=== PATIENT | male | born 1925 | race Caucasian/White ===

== ENCOUNTER → 2016-04-08 | Outpatient (CLI) | payer MEDICARE | END | disposition home or self-care (01) | LOC: GMA 17:25 | PROVIDERS: ATTEND Nurse Practitioner Acute Care | DX: M25.579 Pain in unspecified ankle and joints of unspecified foot (principal) ==

== ENCOUNTER → 2016-07-10 | Outpatient (CLI) | payer MEDICARE | END | disposition home or self-care (01) | LOC: GMAM 10:28 | PROVIDERS: ATTEND Family Medicine | DX: M10.9 Gout, unspecified (principal) ==

== ENCOUNTER → 2016-07-11 | Outpatient (CLI) | payer MEDICARE | END | disposition home or self-care (01) | LOC: GMAM 18:08 | PROVIDERS: ATTEND Family Medicine | DX: D64.9 Anemia, unspecified (principal) ==

== ENCOUNTER → 2016-08-08 | Outpatient (CLI) | payer MEDICARE | END | disposition home or self-care (01) | LOC: GMAM 11:30 | PROVIDERS: ATTEND Family Medicine | DX: D64.9 Anemia, unspecified (principal) ==

== ENCOUNTER → 2016-11-12 | Outpatient (CLI) | payer MEDICARE | END | disposition home or self-care (01) | LOC: GMAM 10:20 | PROVIDERS: ATTEND Family Medicine | DX: Z79.899 Other long term (current) drug therapy (principal); D64.9 Anemia, unspecified; M10.9 Gout, unspecified ==

== ENCOUNTER 2017-03-09 13:48 | Emergency (ER) | payer MEDICARE ==
[2017-03-09] MEDS ORDERED: ALUMINUM & MAGNESIUM HYDROXIDE 30 ML UD PO ONE (15:14)
[2017-03-09 16:11] VITALS: BP 187/84
[2017-03-09 16:18] VITALS: TEMP 98.8
--- NOTE | 2017-03-09 16:28 | RAD ---
EXAM DESCRIPTION: Abdomen Series CLINICAL HISTORY: 89 years Male, abd cramping COMPARISON: August 05, 2013 TECHNIQUE: Supine and upright views FINDINGS: Nonspecific bowel gas pattern. No evidence of intestinal obstruction. No free air. Vascular calcifications. Thoracic lumbar spondylosis and scoliosis. Chest radiograph demonstrates mild congestive change but no focal consolidation IMPRESSION: Nonspecific bowel gas pattern Mild congestive change within the chest Electronically signed by: Ezra Naik 03/09/2017 4:28 PM [employer]
--- NOTE | 2017-03-09 16:40 | ED.PDOC ---
History of Present Illness - General Chief Complaint: GI Problem Stated Complaint: stomach upset, rhinitis Time Seen by Provider: 03/09/17 15:08 Source: patient Exam Limitations: no limitations - History of Present Illness Initial Comments: The patient is an 89-year-old male presenting to the emergency room secondary to abdominal cramping that started this morning. It has been moderate in nature. He had little bit of diarrhea a couple of days ago but has not had a bowel movement since. No vomiting but mild nausea. No sore throat or No shortness of breath. Timing/Duration: 4-6 hours Severity: mild Improving Factors: nothing Worsening Factors: nothing Associated Symptoms: loss of appetite, nausea/vomiting Home Medications: Ambulatory Orders Acetaminophen [Tylenol Adult Liquid] 500 mg PO Q4H PRN 08/02/13 Bumetanide [Bumex] 1 mg PO DAILY 08/02/13 Dutasteride [Avodart] 0.5 mg PO DAILY 08/02/13 Febuxostat [Uloric] 40 mg PO DAILY 08/02/13 Gabapentin 300 mg PO DAILY PRN 08/02/13 [id number]-Agcgyszdkgp-Duk C- [Glucosamine Chondroitin 1] 2 cap PO DAILY HYDROcodone 5MG/APAP 325MG [[place] 5/325] 1 tab PO .Q6H PRN 08/02/13 Insulin Aspart [Novolog] 0 unit SC AC PRN 08/02/13 Insulin Detemir [Levemir Pen] 5 unit SUBCU BID 08/02/13 Latanoprost 0.005% Ophth [Xalatan 0.005% Ophthalmic Drops] 1 drop OPHTH HS 08/02 Lubiprostone [Amitiza] 24 mcg PO BID 08/02/13 Metoprolol Tartrate [Lopressor] 50 mg PO HS 08/02/13 Multiple Vitamins W/ Minerals 1 tab PO HS 08/02/13 Multiple Vitamins W/ Minerals [Icaps Areds Formula] 2 tab PO HS 08/02/13 Olmesartan Medoxomil [Benicar] 20 mg PO DAILY 08/02/13 Ondansetron [Zofran Odt] 4 mg PO Q4H PRN 08/02/13 Rivaroxaban [Xarelto] 10 mg PO HS 08/02/13 Rosuvastatin Calcium [Crestor] 40 mg PO DAILY 08/02/13 Tamsulosin [Flomax] 0.4 mg PO HS 08/02/13 Metoclopramide HCl [Reglan] 10 mg PO BID #0 tab 08/05/13 Review of Systems - Review of Systems Constitutional: States: malaise EENTM: States: no symptoms reported Respiratory: States: no symptoms reported Cardiology: States: no symptoms reported Gastrointestinal/Abdominal: States: constipation, diarrhea, nausea Genitourinary: States: no symptoms reported Musculoskeletal: States: no symptoms reported Skin: States: no symptoms reported Neurological: States: no symptoms reported Endocrine: States: no symptoms reported All other Systems: No Change from Baseline Past Medical History (General) - Patient Medical History Hx Seizures: No Hx Stroke: Yes Hx Dementia: No Hx Asthma: No Hx of COPD: No Hx Cardiac Disorders: No Hx Congestive Heart Failure: No Hx Pacemaker: No Hx Hypertension: Yes Hx Thyroid Disease: No Hx Diabetes: Yes Hx Gastroesophageal Reflux: No Hx Renal Disease: No Hx MRSA: No - Vaccination History Hx Influenza Vaccination: Yes Hx Pneumococcal Vaccination: Yes - Social History Hx Alcohol Use: No Hx Substance Use: No Hx Physical Abuse: No Hx Emotional Abuse: No Family Medical History - Family History Mother Family History: Unknown Physical Exam - Physical Exam General Appearance: Alert, Comfortable, No apparent distress Eye Exam: bilateral normal Ears, Nose, Throat: hearing grossly normal, normal ENT inspection, normal pharynx Neck: full range of motion, supple, normal inspection Respiratory: lungs clear, normal breath sounds, no respiratory distress, no accessory muscle use Cardiovascular/Chest: normal peripheral pulses, no edema, other - regular rate Peripheral Pulses: radial,right: 2+, radial,left: 2+, dorsalis pedis,right: 2+, dorsalis pedis,left: 2+ Gastrointestinal/Abdominal: non tender, soft, other - o rebound or peritoneal signs. No point pain. 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 He does have some constipation on his x-ray and should take MiraLAX daily for the next couple of days. He needs to keep himself well hydrated given his chronic renal insufficiency. He should eat a bland diet. He should try and ambulate. Lab work and x-ray appear reassuring. He has tested negative for the flu. He should follow up with his primary care doctor later this week. - Results/Orders Results/Orders: Laboratory Results - last 24 hr 03/09/17 03/09/17 03/09/17 15:14 15:14 15:43 WBC 8.2 RBC 3.69 L Hgb 11.0 L Hct 33.4 L MCV 90.5 MCH 29.8 MCHC 32.8 L RDW 14.5 Plt Count 247 MPV 7.7 Absolute Neuts (auto) 6.50 Absolute Lymphs (auto) 1.00 Absolute Monos (auto) 0.60 Absolute Eos (auto) 0.00 Absolute Basos (auto) 0.10 Neutrophils % 78.9 H Lymphocytes % 12.7 L Monocytes % 7.3 Eosinophils % 0.4 L Basophils % 0.7 Sodium 137 Potassium 3.9 Chloride 105 Carbon Dioxide 24 Anion Gap 11.9 L BUN 33 H Creatinine 1.95 H BUN/Creatinine Ratio 16.9 Random Glucose 163 H Serum Osmolality 284.7 Calcium 8.6 Total Bilirubin 0.8 AST 24 ALT 25 Alkaline Phosphatase 21 L Creatine Kinase 65 CK-MB (CK-2) 3.2 CK-MB (CK-2) % Not Reportable Troponin I 0.07 H* Serum Total Protein 7.1 Albumin 3.5 Globulin 3.6 H Albumin/Globulin Ratio 1.0 L Amylase 107 H Lipase 27 Urine Color Yellow Urine Appearance Clear Urine pH 5.5 Ur Specific [place] 1.020 Urine Protein 100 H Urine Glucose (UA) Negative Urine Ketones Trace Urine Blood Trace-lysed H Urine Nitrite Negative Urine Bilirubin Negative Urine Urobilinogen 0.2 Ur Leukocyte Esterase Negative Urine RBC 1-3 Urine WBC 0 Ur Epithelial Cells 0 Urine Bacteria 0 e has tested negative for flu. Chest x-ray shows mild vascular congestion. Abdominal x-ray shows a moderate amount of stool but no perforation or obstruction. Departure - Departure Clinical Impression: Constipation Qualifiers: Constipation type: unspecified constipation type Qualified Code(s): K59.00 - Constipation, unspecified Disposition: Discharge to Home or Self Care Condition: Fair Departure Forms: ED Discharge - Pt. Copy, Patient Portal Self Enrollment Instructions: DI for Constipation Diet: bland diet Activity: increase activity as tolerated Referrals: Dave Jackson MD [Primary Care Provider] - 1-5 Days Home Medications: Ambulatory Orders Acetaminophen [Tylenol Adult Liquid] 500 mg PO Q4H PRN 08/02/13 Bumetanide [Bumex] 1 mg PO DAILY 08/02/13 Dutasteride [Avodart] 0.5 mg PO DAILY 08/02/13 Febuxostat [Uloric] 40 mg PO DAILY 08/02/13 Gabapentin 300 mg PO DAILY PRN 08/02/13 Eqeefqjoqqp-Imchuasabui-Eji C- [Glucosamine Chondroitin 1] 2 cap PO DAILY HYDROcodone 5MG/APAP 325MG [[place] 5/325] 1 tab PO .Q6H PRN 08/02/13 Insulin Aspart [Novolog] 0 unit SC AC PRN 08/02/13 Insulin Detemir [Levemir Pen] 5 unit SUBCU BID 08/02/13 Latanoprost 0.005% Ophth [Xalatan 0.005% Ophthalmic Drops] 1 drop OPHTH HS 08/02 Lubiprostone [Amitiza] 24 mcg PO BID 08/02/13 Metoprolol Tartrate [Lopressor] 50 mg PO HS 08/02/13 Multiple Vitamins W/ Minerals 1 tab PO HS 08/02/13 Multiple Vitamins W/ Minerals [Icaps Areds Formula] 2 tab PO HS 08/02/13 Olmesartan Medoxomil [Benicar] 20 mg PO DAILY 08/02/13 Ondansetron [Zofran Odt] 4 mg PO Q4H PRN 08/02/13 Rivaroxaban [Xarelto] 10 mg PO HS 08/02/13 Rosuvastatin Calcium [Crestor] 40 mg PO DAILY 08/02/13 Tamsulosin [Flomax] 0.4 mg PO HS 08/02/13 Metoclopramide HCl [Reglan] 10 mg PO BID #0 tab 08/05/13 Additional Instructions: the patient is an 89-year-old male presenting with abdominal cramping that is likely due to a viral gastroenteritis. He does have some constipation on his x-ray and should take MiraLAX daily for the next couple of days. He needs to keep himself well hydrated given his chronic renal insufficiency. He should eat a bland diet. He should try and ambulate. Lab work and x-ray appear reassuring. He has tested negative for the flu. He should follow up with his primary care doctor later this week.
[2017-03-09 17:55] VITALS: O2SAT 95
== END 2017-03-09 17:10 | disposition home or self-care (01) ==
LOC: ER 13:48
DX: K59.00 Constipation, unspecified (principal); I10 Essential (primary) hypertension; E11.9 Type 2 diabetes mellitus without complications; Z79.899 Other long term (current) drug therapy; Z86.73 Personal history of transient ischemic attack (TIA), and cerebral infarction without residual deficits

== ENCOUNTER 2017-03-19 17:06 | Emergency (ER) | payer MEDICARE ==
--- NOTE | 2017-03-19 18:48 | ED.PDOC ---
History of Present Illness - General Chief Complaint: GI Problem Stated Complaint: nausea Time Seen by Provider: 03/19/17 18:41 Information Source: patient, family Exam Limitations: no limitations - History of Present Illness Initial Comments: Liberty Canales brought by family here afte he stated that feels like bloated full of gas everytime he eats since last week .Stated he was here last week and lab test taken nothing acute and he was sent home.He was able to eat this morning but felt nauseated.Has history of afib,dm2,and chronic back pain.Had out patient labs done Ejmbkqc-ieyer-5.5mg Abdominal Pain Onset Location: other - no abdominal pain Pain Radiation: no radiation Quality: mild Timing/Duration: 1 week Improving Factors: nothing Worsening Factors: eating Associated Symptoms: other - chronic constipation Review of Systems - Review of Systems Constitutional: States: no symptoms reported EENTM: States: no symptoms reported Respiratory: States: no symptoms reported Cardiology: States: no symptoms reported Gastrointestinal/Abdominal: States: see HPI Genitourinary: States: no symptoms reported Past Medical History (General) - Patient Medical History Hx Seizures: No Hx Stroke: Yes Hx Dementia: No Hx Asthma: No Hx of COPD: No Hx Cardiac Disorders: Yes - Atrial fib Hx Congestive Heart Failure: No Hx Pacemaker: No Hx Hypertension: Yes Hx Thyroid Disease: No Hx Diabetes: Yes Hx Gastroesophageal Reflux: Yes Hx Renal Disease: No Hx MRSA: No Hx Other PMH: Yes - chronic low back pain Surgical History: appendectomy - Vaccination History Hx Influenza Vaccination: Yes Hx Pneumococcal Vaccination: Yes - Social History Hx Tobacco Use: No Hx Chewing Tobacco Use: Yes Hx Alcohol Use: No Hx Substance Use: No Hx Physical Abuse: No Hx Emotional Abuse: No Family Medical History - Family History Mother Family History: Unknown Hx Family Cancer: Yes - sisters-breast,lymphoma Physical Exam - Physical Exam General Appearance: Alert, Comfortable, No apparent distress Eyes, Ears, Nose, Throat Exam: PERRL/EOMI, normal ENT inspection, pharynx normal Neck: non-tender, full range of motion, normal inspection Respiratory: chest non-tender, lungs clear, normal breath sounds Cardiovascular/Chest: normal peripheral pulses, regular rate, rhythm, no murmur Peripheral Pulses: No deficit Gastrointestinal/Abdominal: normal bowel sounds, non tender, soft Back Exam: no CVA tenderness, no vertebral tenderness Extremity: no pedal edema, no calf tenderness Neurologic: alert, oriented x 3 Skin Exam: normal color, warm/dry Progress - Progress Progress: 03/19/17 18:51 Last Vital Signs Temp 98 F 03/19/17 17:29 Pulse 58 L 03/19/17 17:29 Resp 16 18 17:29 BP 160/85 03/19/17 17:29 Pulse Ox 97 03/19/17 17:29 Departure - Departure Clinical Impression: Nausea, Abdominal discomfort Time of Disposition: 19:04 Disposition: Discharge to Home or Self Care Condition: Fair Departure Forms: ED Discharge - Pt. Copy, Patient Portal Self Enrollment Diet: other - small frequent meal Referrals: Dave Jackson MD [Primary Care Provider] - 1-2 Weeks Home Medications: Ambulatory Orders Febuxostat [Uloric] 40 mg PO DAILY 08/02/13 Gabapentin 300 mg PO NOON PRN 08/02/13 HYDROcodone 5MG/APAP 325MG [[place] 5/325] 1 tab PO .Q6H PRN 08/02/13 Insulin Aspart [Novolog] 0 unit SC AC PRN 08/02/13 Insulin Detemir [Levemir Pen] 9 unit SUBCU BID 08/02/13 Latanoprost 0.005% Ophth [Xalatan 0.005% Ophthalmic Drops] 1 drop OPHTH HS 08/02 Lubiprostone [Amitiza] 24 mcg PO BID 08/02/13 Metoprolol Tartrate [Lopressor] 50 mg PO HS 08/02/13 Olmesartan Medoxomil [Benicar] 5 mg PO DAILY 08/02/13 Ondansetron [Zofran Odt] 4 mg PO Q4H PRN 08/02/13 Rivaroxaban [Xarelto] 10 mg PO HS 08/02/13 Rosuvastatin Calcium [Crestor] 40 mg PO DAILY 08/02/13 Denosumab [Prolia] 60 mg SC .[id number] 03/19/17 Digoxin 0.125 mg PO DAILY 03/19/17 Furosemide 20 mg PO DAILY 03/19/17 Gabapentin 600 mg PO DAILY 03/19/17 Methocarbamol [Robaxin] 750 mg PO Q8H PRN 03/19/17 Metoprolol Tartrate 25 mg PO DAILY 03/19/17 Pantoprazole Sodium 40 mg PO DAILY PRN 03/19/17 Sitagliptin Phosphate [Januvia] 25 mg PO DAILY 03/19/17 Additional Instructions: Keep appointment with primary md tomorrow 03/20/2017;Continue with all home medications
[2017-03-19 19:15] VITALS: BP 149/89; TEMP 98.7; O2SAT 99
== END 2017-03-19 19:15 | disposition home or self-care (01) ==
LOC: ER 17:06
DX: R11.0 Nausea (principal); R10.9 Unspecified abdominal pain; F17.220 Nicotine dependence, chewing tobacco, uncomplicated; I48.91 Unspecified atrial fibrillation; I10 Essential (primary) hypertension; E11.9 Type 2 diabetes mellitus without complications; G89.29 Other chronic pain; M54.5 Low back pain; Z86.73 Personal history of transient ischemic attack (TIA), and cerebral infarction without residual deficits
CPT/HCPCS: 80162; 82728; 82746; 83540; 83550; 84550; G0103

== ENCOUNTER 2017-03-21 14:22 | Emergency (ER) | payer MEDICARE ==
--- NOTE | 2017-03-21 14:44 | ED.PDOC ---
History of Present Illness - General Chief Complaint: General Stated Complaint: diarrhea;nausea/vomiting Time Seen by Provider: 03/21/17 14:38 Source: patient, EMS notes reviewed Exam Limitations: no limitations - History of Present Illness Initial Comments: Liberty Canales 89 y/o male brought by ems after feeling nauseated and an episode of diarrhea today.Denies chest pain abdominal pain;Just recently seen his primary md yesterday and was diagnosed with flu and given something for n/v and antibiotics.He was also seen here in the ER the last 3 days and work up no significant findings noted He was given samples of linzess for his abdominal discomfort and took 5 pills at one time this morning. Timing/Duration: 1 week Severity: moderate Improving Factors: nothing Worsening Factors: eating Associated Symptoms: other - see hpi Allergies/Adverse Reactions: Allergies Morphine Adverse Reaction (Verified 03/19/17 17:45) All Narcotics Adverse Reaction (Uncoded 03/19/17 17:45) Home Medications: Ambulatory Orders Febuxostat [Uloric] 40 mg PO DAILY 08/02/13 Gabapentin 300 mg PO NOON PRN 08/02/13 HYDROcodone 5MG/APAP 325MG [[place] 5/325] 1 tab PO .Q6H PRN 08/02/13 Insulin Aspart [Novolog] 0 unit SC AC PRN 08/02/13 Insulin Detemir [Levemir Pen] 9 unit SUBCU BID 08/02/13 Latanoprost 0.005% Ophth [Xalatan 0.005% Ophthalmic Drops] 1 drop OPHTH HS 08/02 Lubiprostone [Amitiza] 24 mcg PO BID 08/02/13 Metoprolol Tartrate [Lopressor] 50 mg PO HS 08/02/13 Olmesartan Medoxomil [Benicar] 5 mg PO DAILY 08/02/13 Ondansetron [Zofran Odt] 4 mg PO Q4H PRN 08/02/13 Rivaroxaban [Xarelto] 10 mg PO HS 08/02/13 Rosuvastatin Calcium [Crestor] 40 mg PO DAILY 08/02/13 Denosumab [Prolia] 60 mg SC .[id number] 03/19/17 Digoxin 0.125 mg PO DAILY 03/19/17 Furosemide 20 mg PO DAILY 03/19/17 Gabapentin 600 mg PO DAILY 03/19/17 Methocarbamol [Robaxin] 750 mg PO Q8H PRN 03/19/17 Metoprolol Tartrate 25 mg PO DAILY 03/19/17 Pantoprazole Sodium 40 mg PO DAILY PRN 03/19/17 Sitagliptin Phosphate [Januvia] 25 mg PO DAILY 03/19/17 Review of Systems - Review of Systems Constitutional: States: no symptoms reported EENTM: States: no symptoms reported Respiratory: States: no symptoms reported Cardiology: States: no symptoms reported Gastrointestinal/Abdominal: States: see HPI Genitourinary: States: no symptoms reported Musculoskeletal: States: no symptoms reported Skin: States: no symptoms reported Neurological: States: no symptoms reported Past Medical History (General) - Patient Medical History Hx Seizures: No Hx Stroke: Yes Hx Dementia: No Hx Asthma: No Hx of COPD: No Hx Cardiac Disorders: Yes - Atrial fib Hx Congestive Heart Failure: No Hx Pacemaker: No Hx Hypertension: Yes Hx Thyroid Disease: No Hx Diabetes: Yes Hx Gastroesophageal Reflux: Yes Hx Renal Disease: No Hx MRSA: No Surgical History: appendectomy - Social History Hx Tobacco Use: No Hx Alcohol Use: No Hx Substance Use: No Hx Physical Abuse: No Hx Emotional Abuse: No Hx Suspected Abuse: No - Activities of Daily Living Grooming Ability: Independent Eating (Feeding) Ability: Independent Toileting Ability: Independent Family Medical History - Family History Mother Family History: Unknown Hx Family Cancer: Yes - sisters-breast,lymphoma Physical Exam - Physical Exam General Appearance: Alert, Comfortable, No apparent distress Eye Exam: bilateral normal Ears, Nose, Throat: hearing grossly normal, normal ENT inspection, normal pharynx Neck: non-tender, supple Respiratory: chest non-tender, lungs clear, no respiratory distress Cardiovascular/Chest: normal peripheral pulses, regular rate, rhythm, no murmur Gastrointestinal/Abdominal: normal bowel sounds, non tender, soft, no organomegaly Back Exam: no CVA tenderness, no vertebral tenderness Extremity: no pedal edema, no calf tenderness Neurologic: alert, oriented x 3 Skin Exam: normal color, warm/dry Progress - Progress Progress: 03/21/17 15:40 Last Vital Signs Temp 99.1 F 03/21/17 14:25 Pulse 47 L 03/21/17 14:25 Resp 16 03/21/17 14:25 BP 118/99 03/21/17 14:25 Pulse Ox 99 03/21/17 14:25 - Results/Orders Results/Orders: Laboratory Tests 03/21/17 03/21/17 15:31 18:00 WBC 4.9 RBC 3.86 L Hgb 11.3 L Hct 34.5 L MCV 89.4 MCH 29.2 MCHC 32.7 L RDW 14.5 Plt Count 176 MPV 8.2 Absolute Neuts (auto) 2.90 Absolute Lymphs (auto) 1.20 Absolute Monos (auto) 0.70 Absolute Eos (auto) 0.00 Absolute Basos (auto) 0.00 Neutrophils % 60.3 Lymphocytes % 24.1 Monocytes % 14.8 H Eosinophils % 0.1 L Basophils % 0.7 PT 18.9 H INR 1.680 PTT (SP) 41.8 H Sodium 134 L Potassium 4.6 Chloride 104 Carbon Dioxide 23 Anion Gap 11.6 L BUN 27 H Creatinine 1.94 H BUN/Creatinine Ratio 13.9 Random Glucose 183 H Serum Osmolality 278.0 Calcium 8.1 L Magnesium 1.9 Total Bilirubin 1.0 Direct Bilirubin 0.3 H Indirect Bilirubin 0.7 AST 28 ALT 26 Alkaline Phosphatase 50 Creatine Kinase 140 CK-MB (CK-2) 5.1 H* CK-MB (CK-2) % Not Reportable Troponin I 0.12 H* 0.11 H* Serum Total Protein 6.9 Albumin 3.3 Lipase 44 Patient with slight elevation of his troponin which he had on his previous visit here on 03/09/17 but no chest pain symptoms.Has history of atrial fibrillation and renal insufficiency .Also he is presently on Xarelto for his anticoagulation.Most likely cause of sligh troponin leak and renal insufficiency. Troponin was repeated and was noted to be on the downward trend. - EKG/XRAY/CT EKG: Chris, nonspecific ST T wave Chg Comments: heart rate-80;Afib XRAY: chest - no acute abnormalities noted CT Ordered: Yes - no bowel obstruction Departure - Departure Clinical Impression: Nausea and vomiting in adult patient, Diarrhea in adult patient, Troponin I above reference range Time of Disposition: 18:59 Disposition: Discharge to Home or Self Care Condition: Fair Departure Forms: ED Discharge - Pt. Copy, Patient Portal Self Enrollment Referrals: Dave Jackson MD [Primary Care Provider] - 1-2 Weeks Home Medications: Ambulatory Orders Febuxostat [Uloric] 40 mg PO DAILY 08/02/13 Gabapentin 300 mg PO NOON PRN 08/02/13 HYDROcodone 5MG/APAP 325MG [[place] 5/325] 1 tab PO .Q6H PRN 08/02/13 Insulin Aspart [Novolog] 0 unit SC AC PRN 08/02/13 Insulin Detemir [Levemir Pen] 9 unit SUBCU BID 08/02/13 Latanoprost 0.005% Ophth [Xalatan 0.005% Ophthalmic Drops] 1 drop OPHTH HS 08/02 Lubiprostone [Amitiza] 24 mcg PO BID 08/02/13 Metoprolol Tartrate [Lopressor] 50 mg PO HS 08/02/13 Olmesartan Medoxomil [Benicar] 5 mg PO DAILY 08/02/13 Ondansetron [Zofran Odt] 4 mg PO Q4H PRN 08/02/13 Rivaroxaban [Xarelto] 10 mg PO HS 08/02/13 Rosuvastatin Calcium [Crestor] 40 mg PO DAILY 08/02/13 Denosumab [Prolia] 60 mg SC .[id number] 03/19/17 Digoxin 0.125 mg PO DAILY 03/19/17 Furosemide 20 mg PO DAILY 03/19/17 Gabapentin 600 mg PO DAILY 03/19/17 Methocarbamol [Robaxin] 750 mg PO Q8H PRN 03/19/17 Metoprolol Tartrate 25 mg PO DAILY 03/19/17 Pantoprazole Sodium 40 mg PO DAILY PRN 03/19/17 Sitagliptin Phosphate [Januvia] 25 mg PO DAILY 03/19/17 Additional Instructions: Continue with all home medications;Return to emergency room as needed
[2017-03-21 15:24] VITALS: TEMP 99.1; O2SAT 99
[2017-03-21] MEDS ORDERED: ONDANSETRON INJ 4 MG/2 ML VIAL IV ONE (15:45)
--- NOTE | 2017-03-21 16:01 | RAD ---
EXAM DESCRIPTION: Chest,1 View CLINICAL HISTORY: Cough COMPARISON: March 03, 2013. March 19, 2017. FINDINGS: Portable semiupright view of the thorax. Mild cardiomegaly. Vascular pedicle is not widened. No cephalization or interstitial curly B lines. No consolidation is demonstrated. COPD is suspected. Thoracic aortic calcifications atherosclerotic disease. Osseous structures are unremarkable. IMPRESSION: No radiographic evidence for acute cardiopulmonary disease. Electronically signed by: Romeo Sanchez MD 03/21/2017 4:00 PM [facility]
--- NOTE | 2017-03-21 17:42 | CT ---
EXAM DESCRIPTION: Abdoment/Pelvis w/o Contrast CLINICAL HISTORY: 89 years Male abdominal discomfort;Nausea COMPARISON: None. TECHNIQUE: Contiguous axial images obtained through the abdomen and pelvis without IV contrast. Reformatted images obtained. Oral contrast administered. This exam was performed according to our department optimization program which includes automated exposure control, adjustment of the mA and/or kv according to patient size and/or use of iterative reconstruction technique. FINDINGS: Elevation of the left hemidiaphragm. Pulmonary hyperinflation. The liver appears unremarkable. The spleen and pancreas appear unremarkable. No adrenal masses. There is perinephric stranding bilaterally. No evidence of hydronephrosis or obstructive uropathy. There is a 1.3 cm cyst in the left kidney. The gallbladder is visualized. No evidence of aortic aneurysm. There is extensive vascular calcification throughout the abdomen and pelvis. Focal area of dilatation involving the origin of the celiac axis. No bowel obstruction. No free pelvic fluid. Prostate is enlarged. IMPRESSION: No acute intra-abdominal abnormality is identified. Pulmonary hyperinflation with elevation the left hemidiaphragm Extensive vascular calcification Enlarged prostate Electronically signed by: Lucy Hernandez 03/21/2017 5:41 PM [employer]
[2017-03-21 19:22] VITALS: BP 158/80
== END 2017-03-21 19:25 | disposition home or self-care (01) ==
LOC: ER 14:22
DX: R11.2 Nausea with vomiting, unspecified (principal); R19.7 Diarrhea, unspecified; R79.89 Other specified abnormal findings of blood chemistry; I48.91 Unspecified atrial fibrillation; Z79.01 Long term (current) use of anticoagulants; E11.9 Type 2 diabetes mellitus without complications; K21.9 Gastro-esophageal reflux disease without esophagitis; I10 Essential (primary) hypertension; Z79.4 Long term (current) use of insulin; Z88.5 Allergy status to narcotic agent
CPT/HCPCS: 36415; 71045; 74176; 80048; 80076; 82550; 82553; 83690; 84484; 85025; 85610; 85730; J2405